=== PATIENT | female | born 1960 | race Caucasian/White ===

== ENCOUNTER 2019-04-07 23:08 | Emergency (ER) | payer BC ==
[~2019-04-07] VITALS: Ht 162.6 cm; Wt 83.9 kg
[~2019-04-07 23:08] MED LIST: ALBU8.5H8 INH; AMLO10TA8 PO; ATOR20TA37 PO; AZIT500T5 PO; CEFD300C37 PO; GUAI200T3 PO; HYDR12.517 PO; LEVO750T6 PO; LISI-167 PO; METO25TA91 PO; METR500T PO; MULT-108 PO; ONDA4TAB7 PO; POTA10TA11 PO; [UNRECOGNIZED DRUG - CODE] PO
--- NOTE | 2019-04-07 23:32 | NUR ---
UA OBTAINED AND TUBED TO LAB. POC DISCUSSED. AWAITING ORDERS AT THIS TIME.
[2019-04-07 23:52] LABS: CULTURE INDICATED? NO; MICROSCOPIC AUTO
[2019-04-07] MEDS ORDERED: MORPHINE SULFATE 4 MG/ML, 1ML ONE (23:54)
[2019-04-07] MEDS ORDERED: ONDANSETRON 2MG/ML, 2ML ONE (23:54)
[2019-04-08] MEDS ORDERED: MORPHINE SULFATE 4 MG/ML, 1ML IVPush PRN
[2019-04-08] MEDS ORDERED: ONDANSETRON 2MG/ML, 2ML IVPush ONE
[2019-04-08 00:12] LABS: ALANINE AMINOTRANSFERASE 41 U/L (12-78); ALBUMIN 3.8 g/dL (3.4-5.0); ANION GAP 7 mmol/L (5-15); BASOPHILS # (AUTO) 0.04 x10^3/uL (0-0.1); BASOPHILS % (AUTO) 1 % (0-1); CALCIUM 8.6 mg/dL (8.5-10.1); CHLORIDE 110 mmol/L (98-107); EOSINOPHILS # (AUTO) 0.12 x10^3/uL (0-0.4); EOSINOPHILS % (AUTO) 2 % (1-7); LYMPHOCYTES # (AUTO) 3.17 x10^3/uL (1-3.4); LYMPHOCYTES % (AUTO) 42 % (22-44); MD NO; MEAN CORPUSCULAR HEMOGLOBIN 30.3 pg (27.0-34.8); MEAN CORPUSCULAR HGB CONC 34.7 g/dL (32.4-35.8); MEAN CORPUSCULAR VOLUME 87.2 fL (80-100); MEAN PLATELET VOLUME 9.2 fL (7.4-10.4); MONOCYTES # (AUTO) 0.44 x10^3/uL (0.2-0.8); MONOCYTES % (AUTO) 6 % (2-9); NEUTROPHILS # (AUTO) 3.79 x10^3/uL (1.8-6.8); NEUTROPHILS % (AUTO) 50 % (42-75); PLATELET COUNT 258 x10^3/uL (130-400); RED BLOOD COUNT 4.51 x10^6/uL (3.82-5.3); RED CELL DISTRIBUTION WIDTH 13.6 % (9.6-15.2)
[2019-04-08 00:14] LABS: ALKALINE PHOSPHATASE 113 U/L (45-117); BILIRUBIN,TOTAL 0.2 mg/dL (0.2-1.0); TOTAL PROTEIN 7.1 g/dL (6.4-8.2)
--- NOTE | 2019-04-08 00:19 | NUR ---
PT TO CT NOW
--- NOTE | 2019-04-08 00:45 | NUR ---
PT REQUESTING WATER. PA INFORMED. PA OKAY'D WATER. PT AND SPOUSE DENY FURTHER NEEDS AT THIS TIME.
[2019-04-08 01:04] VITALS: BP 128/67
--- NOTE | 2019-04-08 01:33 | NUR ---
Patient given discharge instructions and they have confirmed that they understand the instructions. Patient ambulatory with steady gait.
== END 2019-04-08 01:35 | disposition home or self-care (01) ==
LOC: ED 04-08 00:42
DX: K29.00 Acute gastritis without bleeding (principal); R35.0 Frequency of micturition; R30.0 Dysuria; I10 Essential (primary) hypertension; E11.9 Type 2 diabetes mellitus without complications
CPT/HCPCS: 36415; 74176; 80053; 81001; 85025; 96374; 96375; 99284; J2405

== ENCOUNTER 2019-04-09 15:03 | Emergency (ER) | payer BC ==
[~2019-04-09] VITALS: Ht 162.6 cm; Wt 82.6 kg
[2019-04-09 15:36] LABS: BASOPHILS # (AUTO) 0.03 x10^3/uL (0-0.1); BASOPHILS % (AUTO) 0 % (0-1); EOSINOPHILS # (AUTO) 0.09 x10^3/uL (0-0.4); EOSINOPHILS % (AUTO) 1 % (1-7); LYMPHOCYTES # (AUTO) 2.66 x10^3/uL (1-3.4); LYMPHOCYTES % (AUTO) 29 % (22-44); MD NO; MEAN CORPUSCULAR HEMOGLOBIN 30.2 pg (27.0-34.8); MEAN CORPUSCULAR HGB CONC 34.7 g/dL (32.4-35.8); MEAN CORPUSCULAR VOLUME 86.9 fL (80-100); MEAN PLATELET VOLUME 8.7 fL (7.4-10.4); MONOCYTES # (AUTO) 0.36 x10^3/uL (0.2-0.8); MONOCYTES % (AUTO) 4 % (2-9); NEUTROPHILS # (AUTO) 5.91 x10^3/uL (1.8-6.8); NEUTROPHILS % (AUTO) 65 % (42-75); PLATELET COUNT 269 x10^3/uL (130-400); RED BLOOD COUNT 4.88 x10^6/uL (3.82-5.3); RED CELL DISTRIBUTION WIDTH 13.7 % (9.6-15.2)
[2019-04-09 15:46] LABS: ALBUMIN 4.3 g/dL (3.4-5.0); ANION GAP 7 mmol/L (5-15); CALCIUM 9.1 mg/dL (8.5-10.1); CHLORIDE 107 mmol/L (98-107)
[2019-04-09 15:51] LABS: ALANINE AMINOTRANSFERASE 51 U/L (12-78); ALKALINE PHOSPHATASE 119 U/L (45-117); BILIRUBIN,TOTAL 0.7 mg/dL (0.2-1.0); CREATININE 0.65 mg/dL (0.55-1.02); TOTAL PROTEIN 7.7 g/dL (6.4-8.2)
--- NOTE | 2019-04-09 16:28 | NUR ---
SOFTWARE VERIFICATION ENGINEER: PT CURRENTLY IN U/S, TO GO TO ER ROOM WHEN U/S COMPLETED.
--- NOTE | 2019-04-09 16:53 | NUR ---
Pt still in US.
--- NOTE | 2019-04-09 17:05 | NUR ---
Dr. Junior at bedside to evaluate pt. Pt's at bedside. Pt c/o pain to left flank and left abdomen.
--- NOTE | 2019-04-09 17:21 | NUR ---
Urine sample collected and walked to lab.
[2019-04-09] MEDS ORDERED: MAALOX/HYOSCYAMINE/LIDOCAINE 45 ML BTL ONE (17:22)
--- NOTE | 2019-04-09 17:24 | NUR ---
Pt medicated per MAR.
[2019-04-09] MEDS ORDERED: MAALOX/HYOSCYAMINE/LIDOCAINE 45 ML BTL PO ONE (17:30)
[2019-04-09 17:54] LABS: MICROSCOPIC AUTO
[2019-04-09 18:02] LABS: CULTURE INDICATED? YES
--- NOTE | 2019-04-09 18:06 | NUR ---
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 Pt remains on monitors, VSS.
[2019-04-09 19:03] VITALS: BP 118/58
--- NOTE | 2019-04-09 19:04 | NUR ---
Patient/Caregiver given discharge instructions and they have confirmed that they understand the instructions. Patient ambulatory with steady gait.
== END 2019-04-09 19:06 | disposition home or self-care (01) ==
LOC: ED 19:00
DX: N30.00 Acute cystitis without hematuria (principal); I10 Essential (primary) hypertension; E11.9 Type 2 diabetes mellitus without complications; E78.5 Hyperlipidemia, unspecified
CPT/HCPCS: 36415; 74018; 76770; 80053; 81001; 83690; 85025; 87086; 99284

== ENCOUNTER 2019-04-12 09:50 | Emergency (ER) | payer BC ==
[~2019-04-12] VITALS: Ht 162.6 cm; Wt 83.0 kg
[2019-04-12 09:59] VITALS: BP 125/74
[2019-04-12] MEDS ORDERED: HYDROcodone/APAP 10/325 MG TABLET ONE (10:42)
[2019-04-12] MEDS ORDERED: LIDODERM 5% PATCH TD ONE ×3 (10:42→11:00)
[2019-04-12] MEDS ORDERED: HYDROcodone/APAP 10/325 MG TABLET PO ONE (11:00)
--- NOTE | 2019-04-12 11:14 | NUR ---
Patient/Caregiver given discharge instructions and they have confirmed that they understand the instructions. Patient ambulatory with steady gait. Pt left with all personal belongings.
== END 2019-04-12 11:16 | disposition home or self-care (01) ==
LOC: ED 10:21
DX: B02.9 Zoster without complications (principal); E11.9 Type 2 diabetes mellitus without complications; E78.5 Hyperlipidemia, unspecified; I10 Essential (primary) hypertension
CPT/HCPCS: 99283